=== PATIENT | male | born 1965 | race Caucasian/White ===

== ENCOUNTER 2019-04-13 00:54 | Observation (INO) | payer OTHER ==
[2019-04-13 02:23] LABS: Protime INR 1.03
[2019-04-13 02:33] LABS: Absolute Lymphocytes (CBC) 2.6 K/uL (0.7-4.9); Basophils % 0.8 % (0-1.3); Lymphocytes % 34.5 % (15.3-44.8); MPV 9.4 fL (7.6-11.3); RBC Red Blood Cell Count 4.82 M/uL (4.33-5.43)
[2019-04-13 02:39] LABS: ALT/SGPT 30 U/L (12-78); AST/SGOT 21 U/L (15-37); Albumin 3.8 g/dL (3.4-5.0); Alkaline Phosphatase 79 U/L (45-117); BUN Blood Urea Nitrogen 16 mg/dL (7-18); Bicarbonate 28 mmol/L (21-32); Bilirubin Direct < 0.1 mg/dL (0-0.2); Bilirubin Total 0.2 mg/dL (0.2-1.0); Glucose Level 122 mg/dL (74-106); Magnesium 2.2 mg/dL (1.8-2.4); NT PRO-BNP 994 pg/mL (<125); Potassium 4.2 mmol/L (3.5-5.1); Sodium Level 141 mmol/L (136-145); Troponin (Emerg Dept Use Only) < 0.02 ng/mL (0.0-0.045)
--- NOTE | 2019-04-13 04:16 | P.HP ---
Certification for Inpatient Patient admitted to: Observation With expected LOS: <2 Midnights Practitioner: I am a practitioner with admitting privileges, knowledge of patient current condition, hospital course, and medical plan of care. Services: Services provided to patient in accordance with Admission requirements found in Title 42 Section 412.3 of the Code of Federal Regulations Patient History Date of Service: 04/13/19 Reason for admission: Chest pain History of Present Illness: 54-year-old gentleman with a history of atrial fibrillation presented to the emergency department with a complaint of chest pain of onset about 4 hrs ago. Patient described a 8/10 chest pain which occurred at rest, rated at 8/10 in maximum security, sharp, intermittent, nonradiating, no relieving or aggravating factors. No associated sweating or nausea. 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 He stated he saw Dr. Sam a few days ago and had his Multaq changed to sotalol. He started taking the sotalol only yesterday. Chest pain had resolved before I saw him in the ED. Initial troponin is negative. EKG demonstrates atrial fibrillation, no ischemic changes. Chest x- ray is negative for acute disease. Patient is placed under observation for acute coronary syndrome rule out. Allergies No Known Allergies Allergy (Unverified 04/13/19 01:36) Home Medications: Dabigatran Etexilate Mesylate [Pradaxa*] 150 mg PO BID 04/13/19 Sotalol HCl [Sotalol AF] 80 mg PO BID 04/13/19 - Past Medical/Surgical History Diabetic: No -: Chronic atrial fibrillation -: Status post cardioversion - Family History Family History: Reviewed- Non-Contributory - Family History Father -: Hypertension Mother Notes: no medical condition - Social History Smoking Status: Current every day smoker Alcohol use: Yes CD- Drugs: No Place of Residence: Home Review of Systems Other: General: No fever, no malaise, no unintentional weight loss. Eyes: No eye discharge, Respiratory: No cough, no shortness of breath. CVS: No palpitation, no lightheadedness. GI: No abdominal pain, no nausea no vomit, no constipation, no diarrhea. Genitourinary: No dysuria, no urinary frequency, no incontinence, no hematuria. Musculoskeletal: No joint pains, or joint swelling, no gait instability. Neurology: No headache, no asymmetric weakness, no problem with swallowing. Except as documented, all other systems reviewed and negative. Physical Examination - Physical Exam General: Alert, In no apparent distress, Oriented x3 HEENT: Mucous membr. moist/pink, Sclerae nonicteric Neck: Supple, JVD not distended Respiratory: Clear to auscultation bilaterally, Normal air movement Cardiovascular: No edema, Normal S1 S2, Irregular heart rate/rhythm Capillary refill: <2 Seconds Gastrointestinal: Normal bowel sounds, Soft and benign, Non-distended, No tenderness Musculoskeletal: No swelling, No erythema Integumentary: No rashes Neurological: Normal speech, Normal strength at 5/5 x4 extr - Studies Laboratory Data (last 24 hrs) 04/13/19 01:00: PT 12.1, INR 1.03 04/13/19 01:00: WBC 7.6, Hgb 14.6, Hct 44.0, Plt Count 260 04/13/19 01:00: Sodium 141, Potassium 4.2, BUN 16, Creatinine 0.99, Glucose 122 H, Magnesium 2.2, Total Bilirubin 0.2, AST 21, ALT 30, Alkaline Phosphatase 79 Assessment and Plan - Problems (Diagnosis) (1) Chest pain Current Visit: Yes Status: Acute (2) Atrial fibrillation Current Visit: Yes Status: Acute (3) Tobacco use Current Visit: Yes Status: Acute - Plan Place under observation. Trend troponin Continue sotalol Continue Pradaxa Nuclear stress test if troponin trend negative. Obtained echocardiogram. Cardiology consult - Advance Directives Does patient have a Living Will: No Does patient have a Durable POA for Healthcare: No
[2019-04-13] MEDS ORDERED: NITROGLYCERIN 0.4 MG/TAB SL PRN (05:02)
[2019-04-13] MEDS ORDERED: MORPHINE 4 MG/ML SYR IV PRN (05:02)
[2019-04-13 05:03] VITALS: BMI 26.2
[2019-04-13 06:03] LABS: HDL Cholesterol 61 mg/dL (40-60); LDL Cholesterol, Calculated 61 (<130); Troponin I < 0.02 ng/mL (0.0-0.045)
--- NOTE | 2019-04-13 07:53 | RAD REPORT ---
EXAM DESCRIPTION: Noah Single View04/13/2019 4:00 am CLINICAL HISTORY: Chest pain COMPARISON: none FINDINGS: The lungs are hyperaerated. The lungs appear clear of acute infiltrate. The heart is normal size IMPRESSION: No acute abnormalities displayed
[2019-04-13] MEDS ORDERED: REGADENOSON 0.4 MG/5 ML SYR IV ONE (08:04)
[2019-04-13] MEDS ORDERED: MORPHINE 2 MG/ML SYR IV PRN (09:00)
--- NOTE | 2019-04-13 09:06 | ER ---
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 states it went away. just ch started sotolol today, and was dx with a fib 1 week ago. Transition of care: patient was not received from another setting of care. Onset of symptoms was April 13, 2019 at 00:30. Risk Assessment: Do you want to hurt yourself or someone else? Patient reports no desire to harm self or others. Initial Sepsis Screen: Does the patient meet any 2 criteria? No. Patient's initial sepsis screen is negative. Does the patient have a suspected source of infection? No. Patient's initial sepsis screen is negative. Care prior to arrival: None. 01:02 Method Of Arrival: Ambulatory 01:02 Acuity: CORBIN 2 ch Triage Assessment: 01:04 General: Appears in no apparent distress. comfortable, Behavior is calm, cooperative, ch appropriate for age. Pain: Complains of pain in xyphoid area and mid-sternal area Pain currently is 0 out of 10 on a pain scale. Cardiovascular: Reports chest pain. Respiratory: No deficits noted. Historical: - Allergies: 01:04 No Known Allergies; - Home Meds: 01:04 sotalol Oral [Active]; Pradaxa oral oral [Active]; - PMHx: 01:04 Atrial Fib; - PSHx: 01:04 finger; - Immunization history:: Adult Immunizations up to date, Last tetanus immunization: not indicated for visit today. Flu vaccine is not up to date. - Coronavirus screen:: The patient has NOT traveled to [place], [place], or [place] in the past 14 days. The patient has NOT had contact with known/suspected case of Coronavirus?. - Social history:: Smoking status: Patient reports the use of cigarette tobacco products, smokes one pack cigarettes per day. Patient uses alcohol, on a daily basis. claims drinking about a 6 pack/day. - Ebola Screening: : Patient negative for fever greater than or equal to 101.5 degrees Fahrenheit, and additional compatible Ebola Virus Disease symptoms Patient denies exposure to infectious person Patient denies travel to an Ebola-affected area in the 21 days before illness onset No symptoms or risks identified at this time. Screenin:07 Abuse screen: Denies threats or abuse. Denies injuries from another. Nutritional wh screening: No deficits noted. Tuberculosis screening: No symptoms or risk factors identified. Fall Risk None identified. Assessment: 01:05 Reassessment: Jose C in room beginning to work pt up. 01:07 General: Appears in no apparent distress. Behavior is calm, cooperative, appropriate wh for age. Pain: Complains of pain in chest and mid-sternal area Pain does not radiate. Pain currently is 1 out of 10 on a pain scale. Quality of pain is described as sharp, Pain began 30 min ago. Neuro: Level of Consciousness is awake, alert, obeys commands, Oriented to person, place, time, situation, Appropriate for age. Cardiovascular: Heart tones S1 S2. Respiratory: Airway is patent Respiratory effort is even, unlabored, Respiratory pattern is regular, symmetrical, Breath sounds are clear bilaterally. GI: Abdomen is flat, non-distended. : No signs and/or symptoms were reported regarding the genitourinary system. EENT: No signs and/or symptoms were reported regarding the EENT system. Derm: Skin is intact, is healthy with good turgor, Skin is pink, warm \T\ dry. normal. Musculoskeletal: Circulation, motion, and sensation intact. 02:15 Reassessment: Patient appears in no apparent distress at this time. No changes from previously documented assessment. Patient and/or family updated on plan of care and expected duration. Pain level reassessed. Patient is alert, oriented x 3, equal unlabored respirations, skin warm/dry/pink. 03:30 Reassessment: Patient appears in no apparent distress at this time. No changes from previously documented assessment. Patient and/or family updated on plan of care and expected duration. Pain level reassessed. Patient is alert, oriented x 3, equal unlabored respirations, skin warm/dry/pink. MD at bedside explaining POC need for admit. 04:25 Reassessment: Patient appears in no apparent distress at this time. No changes from previously documented assessment. Patient and/or family updated on plan of care and expected duration. Pain level reassessed. Patient is alert, oriented x 3, equal unlabored respirations, skin warm/dry/pink. Patient denies pain at this time. Vital Signs: 01:04 Weight 104.33 kg; Height 6 ft. 7 in. (200.66 cm); Pain 0/10; ch 01:15 BP 112 / 87 LA Supine (auto/reg); Pulse 84 MON; Resp 14 S; Temp 98.7(O); Pulse Ox 98% ds4 on R/A; Pain 0/10; 02:31 BP 105 / 84; Pulse 76; Resp 17; Pulse Ox 97% ; ds4 04:00 BP 119 / 84; Pulse 77; Resp 18; Pulse Ox 99% on R/A; wh 01:04 Body Mass Index 25.91 (104.33 kg, 200.66 cm) ED Course: 00:59 Patient arrived in ED. ag3 01:01 Zacarias Arroyo MD is Attending Physician. tw4 01:03 Triage completed. 01:04 Arm band placed on left wrist. Patient placed in an exam room, on a stretcher. EKG completed in triage. Results shown to MD. 01:06 Briana Beverly is Primary Nurse. 01:08 Patient has correct armband on for positive identification. Placed in gown. Bed in low wh position. Call light in reach. Side rails up X 1. community service coordinator on. Pulse ox on. NIBP on. 01:08 Inserted saline lock: 20 gauge in right antecubital area, using aseptic technique. Blood collected. Patient maintains SpO2 saturation greater than 95% on room air. 01:15 EKG done, by ED staff, reviewed by Zacarias Arroyo MD. ds4 02:48 Armand Booth is Hospitalizing Provider. tw4 04:37 No provider procedures requiring assistance completed. Patient admitted, IV remains in place. Administered Medications: No medications were administered Outcome: 02:49 Decision to Hospitalize by Provider. tw4 04:38 Admitted to Med/surg accompanied by tech, via wheelchair, room 231, with chart, Report called to Anaya Gardiner RN 04:38 Condition: stable 04:38 Instructed on the need for admit. 04:50 Patient left the ED. Signatures: Adry Elias, ENRIQUE RN Simón Jenkins ds4 Briana Beverly Zacarisa Arroyo MD MD tw4 Piper Lai ag3 Corrections: (The following items were deleted from the chart) 04:36 01:07 Pain: Complains of pain in chest and mid-sternal area Pain does not radiate. Pain wh currently is 5 out of 10 on a pain scale. Quality of pain is described as sharp, Pain began 30 min ago. wh
--- NOTE | 2019-04-13 09:07 | EDPHYS ---
Physician Documentation [facility] Name: Bayron Box Age: 54 yrs Sex: Male : 1965 Arrival Date: 04/13/2019 Time: 00:59 Bed 6 Private MD: ED Physician Zacarias Arroyo HPI: 04/13 01:20 This 54 yrs old Male presents to ER via Ambulatory with complaints of Chest tw4 Pain. 01:20 The patient or guardian reports chest pain that is located primarily in the anterior tw4 chest wall. Onset: today. The pain radiates to Associated signs and symptoms: The patient has no apparent associated signs or symptoms. The chest pain is described as sharp. Duration: The patient or guardian reports a single episode. Modifying factors: The symptoms are alleviated by antacids, the symptoms are aggravated by nothing. The patient has not experienced similar symptoms in the past. Historical: - Allergies: 01:04 No Known Allergies; ch - Home Meds: 01:04 sotalol Oral [Active]; Pradaxa oral oral [Active]; ch - PMHx: 01:04 Atrial Fib; ch - PSHx: 01:04 finger; ch - Immunization history:: Adult Immunizations up to date, Last tetanus immunization: not indicated for visit today. Flu vaccine is not up to date. - Coronavirus screen:: The patient has NOT traveled to [place], [place], or [place] in the past 14 days. The patient has NOT had contact with known/suspected case of Coronavirus?. - Social history:: Smoking status: Patient reports the use of cigarette tobacco products, smokes one pack cigarettes per day. Patient uses alcohol, on a daily basis. claims drinking about a 6 pack/day. - Ebola Screening: : Patient negative for fever greater than or equal to 101.5 degrees Fahrenheit, and additional compatible Ebola Virus Disease symptoms Patient denies exposure to infectious person Patient denies travel to an Ebola-affected area in the 21 days before illness onset No symptoms or risks identified at this time. ROS: 01:20 Constitutional: Negative for fever, chills, and weight loss, Eyes: Negative for injury, tw4 pain, redness, and discharge, Neck: Negative for injury, pain, and swelling, Respiratory: Negative for shortness of breath, cough, wheezing, and pleuritic chest pain, Abdomen/GI: Negative for abdominal pain, nausea, vomiting, diarrhea, and constipation. 01:20 Back: Negative for injury and pain, MS/Extremity: Negative for injury and deformity, Skin: Negative for injury, rash, and discoloration, Neuro: Negative for headache, weakness, numbness, tingling, and seizure. 01:20 Cardiovascular: Positive for chest pain, Negative for edema, orthopnea, palpitations. Exam: 01:20 Constitutional: This is a well developed, well nourished patient who is awake, alert, tw4 and in no acute distress. Head/Face: Normocephalic, atraumatic. Chest/axilla: Normal chest wall appearance and motion. Nontender with no deformity. No lesions are appreciated. 01:20 Respiratory: Lungs have equal breath sounds bilaterally, clear to auscultation and percussion. No rales, rhonchi or wheezes noted. No increased work of breathing, no retractions or nasal flaring. Abdomen/GI: Soft, non-tender, with normal bowel sounds. No distension or tympany. No guarding or rebound. No evidence of tenderness throughout. Back: No spinal tenderness. No costovertebral tenderness. Full range of motion. MS/ Extremity: Pulses equal, no cyanosis. Neurovascular intact. Full, normal range of motion. Neuro: Awake and alert, GCS 15, oriented to person, place, time, and situation. Cranial nerves II-XII grossly intact. Motor strength 5/5 in all extremities. Sensory grossly intact. Cerebellar exam normal. Normal gait. 01:20 Cardiovascular: Rate: normal, Rhythm: irregularly irregular, Pulses: no pulse deficits are appreciated. Vital Signs: 01:04 Weight 104.33 kg; Height 6 ft. 7 in. (200.66 cm); Pain 0/10; ch 01:15 BP 112 / 87 LA Supine (auto/reg); Pulse 84 MON; Resp 14 S; Temp 98.7(O); Pulse Ox 98% ds4 on R/A; Pain 0/10; 02:31 BP 105 / 84; Pulse 76; Resp 17; Pulse Ox 97% ; ds4 04:00 BP 119 / 84; Pulse 77; Resp 18; Pulse Ox 99% on R/A; wh 01:04 Body Mass Index 25.91 (104.33 kg, 200.66 cm) ch MDM: 01:01 Patient medically screened. tw4 01:20 Differential diagnosis: abnormal EKG, coronary artery disease cholecystitis, tw4 Cholelithiasis costochondritis, herpes zoster, pulmonary embolus, thoracic aortic disection, unstable angina. Data reviewed: vital signs, nurses notes. Data interpreted: Pulse oximetry: Interpretation: normal. Counseling: I had a detailed discussion with the patient and/or guardian regarding: the historical points, exam findings, and any diagnostic results supporting the discharge/admit diagnosis. Special discussion: I discussed with the patient/guardian in detail that at this point there is no indication for admission to the hospital. It is understood, however, that if the symptoms persist or worsen the patient needs to return immediately for re-evaluation. 03:58 HEART Score: History: Moderately Suspicious (1), ECG: Non specific repolarization tw4 disturbance / LBTB / PM (1), Age: > 45 and < 65 years (1), Risk Factors: 1 or 2 risk factors (1), Troponin: < or = 1 x Normal Limit (0), Total Score = 4. The patient was given aspirin in the Emergency Department. Data reviewed: lab test result(s), cardiac enzymes, CBC, hepatic panel. Physician consultation: Armand Booth regarding admission, to the telemetry unit. patient's condition, and will see patient in the [facility]. 04/13 01:06 Order name: Basic Metabolic Panel 04/13 01:06 Order name: CBC with Diff 04/13 01:06 Order name: LFT's 04/13 01:06 Order name: Magnesium 04/13 01:06 Order name: NT PRO-BNP 04/13 01:06 Order name: PT-INR 04/13 01:06 Order name: Troponin (emerg Dept Use Only) 04/13 02:26 Order name: Protime (+INR); Complete Time: 02:44 EDMS 04/13 02:35 Order name: CBC with Automated Diff; Complete Time: 02:44 EDMS 04/13 02:45 Interpretation: Within normal limits. tw4 04/13 02:40 Order name: Basic Metabolic Panel; Complete Time: 02:44 EDMS 04/13 02:44 Interpretation: Normal except: CL 108; GLUC 122; GFR 78. tw4 04/13 02:40 Order name: Liver (Hepatic) Function; Complete Time: 02:44 EDMS 0206 02:45 Interpretation: Within normal limits. tw4 04/13 02:41 Order name: Troponin (Emerg Dept Use Only); Complete Time: 02:44 EDMS 0206 02:46 Interpretation: Within normal limits: TROPED < 0.02. tw4 02 02:41 Order name: NT PRO-BNP; Complete Time: 02:44 EDMS 02 02:45 Interpretation: Abnormal: NT PRO-BNP 994. tw4 02 02:42 Order name: Magnesium; Complete Time: 02:44 EDMS 02 02:47 Interpretation: Within normal limits: MG 2.2. tw4 04/13 01:06 Order name: XRAY Chest (1 view) 04/13 01:06 Order name: EKG; Complete Time: 09:05 04/13 01:06 Order name: Cardiac monitoring; Complete Time: 01:06 04/13 01:06 Order name: EKG - Nurse/Tech; Complete Time: 01:06 04/13 01:06 Order name: IV Saline Lock; Complete Time: 01:07 04/13 01:06 Order name: Labs collected and sent; Complete Time: 01:07 04/13 01:06 Order name: O2 Per Protocol; Complete Time: 01:07 04/13 01:06 Order name: O2 Sat Monitoring; Complete Time: 01:07 EC:57 Rate is 90 beats/min. Rhythm is irregularly irregular, A fib. QRS [place] is Normal. ME tw4 interval is normal. QRS interval is normal. QT interval is normal. No Q waves. T waves are Normal. No ST changes noted. Clinical impression: Atrial Fibrillation. Interpreted by me. Reviewed by me. Administered Medications: No medications were administered Disposition: 04/13/19 02:49 Hospitalization ordered by Armand Booth for Observation. Preliminary diagnosis is Chest pain, unspecified. - Bed requested for Telemetry/MedSurg (observation). - Status is Observation. - Condition is Stable. - Problem is new. - Symptoms have improved. Signatures: Dispatcher [employer] EDMS Adry Elias RN RN Shirley Hawley RN RN tl1 Briana Beverly Zacarias Arroyo MD MD tw4 Corrections: (The following items were deleted from the chart) 04:24 02:49 Hospitalization Ordered by Armand Booth for Observation. Preliminary diagnosis tl1 is Chest pain, unspecified. Bed requested for Telemetry/MedSurg (observation). Status is Observation. Condition is Stable. Problem is new. Symptoms have improved. tw4 04:50 04:24 04/13/2019 02:49 Hospitalization Ordered by Armand Booth for Observation. wh Preliminary diagnosis is Chest pain, unspecified. Bed requested for Telemetry/MedSurg (observation). Status is Observation. Condition is Stable. Problem is new. Symptoms have improved. tl1
[2019-04-13] MEDS: DABIGATRAN 150 MG CAP PO SCH ×2 (10:04→21:12)
--- NOTE | 2019-04-13 10:23 | EKG ---
Test Date: 2019-04-13 Test Time: 08:16:35 Market Development Analyst: ALEXANDRA MEASUREMENT RESULTS: Intervals: Rate: 77 FL: QRSD: 110 QT: 402 QTc: 454 [place]: P: FL: QRS: 72 T: 78 INTERPRETIVE STATEMENTS: Atrial fibrillation Abnormal ECG Compared to ECG 04/13/2019 01:05:41 Ventricular premature complex(es) no longer present Electronically Signed On 04-13-19 10:22:39 DISTILLERY MILLER HELPER by Harjit Sam
--- NOTE | 2019-04-13 10:24 | EKG ---
Test Date: 2019-04-13 Test Time: 01:05:41 Rocket Motor Mechanic: BERTIN MEASUREMENT RESULTS: Intervals: Rate: 90 LA: QRSD: 108 QT: 374 QTc: 457 [place]: P: LA: QRS: 57 T: 58 INTERPRETIVE STATEMENTS: Atrial fibrillation with premature ventricular or aberrantly conducted complexes Abnormal ECG Compared to ECG 01/15/2009 15:49:05 Ventricular premature complex(es) now present Sinus bradycardia no longer present Atrial premature complex(es) no longer present Electronically Signed On 04-13-19 10:23:46 WAREHOUSE ADMINISTRATOR by Harjit Sam
--- NOTE | 2019-04-13 11:22 | ECHO ---
HEIGHT: 6 ft 7 in WEIGHT: 232 lb 4 oz DATE OF STUDY: 04/13/[address]: danielle bhatti 2-DIMENSIONAL: YES M.MODE: YES DOPPLER: YES COLOR FLOW: YES TDS: NO PORTABLE: NO DEFINITY: NO BUBBLE STUDY: NO DIAGNOSIS: ATRIAL FIBRILLATION WITH CHEST PAIN CARDIAC HISTORY: CATHERIZATION: NO SURGERY: NO PROSTHETIC VALVE: NO PACEMAKER: NO MEASUREMENTS (cm) DIASTOLIC (NORMALS) SYSTOLIC (NORMALS) IVSd 1.1 (0.6-1.2) LA Diam 2.9 (1.9-4.0) LVEF 52% LVIDd 3.0 (3.5-5.7) LVIDs 2.2 (2.0-3.5) %FS 25% LVPWd 1.2 (0.6-1.2) Ao Diam 2.7 (2.0-3.7) 2 DIMENSIONAL ASSESSMENT: RIGHT ATRIUM: NORMAL LEFT ATRIUM: NORMAL RIGHT VENTRICLE: NORMAL LEFT VENTRICLE: NORMAL TRICUSPID VALVE: NORMAL MITRAL VALVE: NORMAL PULMONIC VALVE: NORMAL AORTIC VALVE: NORMAL PERICARDIAL EFFUSION: NONE AORTIC ROOT: NORMAL LEFT VENTRICULAR WALL MOTION: NORMAL. DOPPLER/COLOR FLOW: PHYSIOLOGIC TRICUSPID REGURGITATION, NORMAL RIGHT VENTRICULAR SYSTOLIC PRESSURE. COMMENTS: NORMAL 2D ECHO WITH DOPPLER WHILE PATIENT IS IN ATRIAL FIBRILLATION 80-90 BEATS PER MINUTE. TECHNOLOGIST: JERRY DAVISON
--- NOTE | 2019-04-13 12:10 | RAD REPORT ---
EXAM DESCRIPTION: NM - Rest Stress Cardiac Imaging - 04/13/2019 12:02 pm CLINICAL HISTORY: Chest pain COMPARISON: None. TECHNIQUE: The patient was administered 10.9 mCi of Tc 99m Sestamibi prior to resting SPECT imaging of the heart. The patient was then administered 32.8 mCi of Tc 99m Sestamibi following exercise or ph armacologic stress. Multiplanar SPECT images were reviewed. FINDINGS: The end diastolic volume is 130 ml, the end systolic volume is 58 ml, and the ejection fra ction is 56 %. Diaphragm attenuation or scarring cause diminished activity along the inferior wall on both rest and stress imaging. No stress-induced ischemic changes identifiable. IMPRESSION: No stress-induced ischemia. Fixed decreased activity inferior wall could be attenuation artifact or scarring. End-diastolic volume is prominent at 130 mL. Ejection fraction normal at 56%.
--- NOTE | 2019-04-13 12:16 | TREADPHA ---
DX: ATRIAL FIBRILLATION WITH CHEST PAIN Date of Study: 04/13/2019 Ht: 6 7 Wt: 232 lb 4 oz Consulting Physician: EVANS MEDICATIONS: NITROSTAT HISTORY: 54 YEAR OLD MALE WITH COMPLAINTS OF CHEST PAIN. MEDICAL HISTORY: ATRIAL FIBRILLATION, HYPERTENSION, POSITIVE SMOKER. PHYSICIAL EXAMINATION: RESTING B.P.: 113/75 RESTING H.R.: 85 RESTING EKG: ATRIAL FIBRILLATION WITH PREMATURE VENTRICULAR COMPLEXES PROTOCOL: PHARMACOLOGIC EXERCISE TIME: 3:30 B.P. AT PEAK STRESS: 136/100 IMPRESSION: LEXISCAN INJECTED, CARDIOLITE INJECTED PER PROTOCOL. SEE NUCLEAR MEDICINE REPORT. NO SUPRAVENTRICULAR COMPLEXES. NO VENTRICULAR TACHYCARDIA. MULTIPLE PREMATURE VENTRICULAR COMPLEXES THROUGHOUT. DENIED CHEST PAIN. NON-DIAGNOSTIC ELECTROCARDIOGRAM WITH LEXISCAN STRESS.
[2019-04-13] MEDS ORDERED: SOTALOL HCL 80 MG TAB PO ONE (12:45)
--- NOTE | 2019-04-13 13:27 | CON ---
History Of Present Illness: Mr. Box is 54. He has had paroxysmal AFib for more than 10 years, w ell controlled. Last week, he went into AFib for the first time in several years. It was persistent , so we changed him from Multaq to sotalol. Sotalol was started yesterday. He came to the hospital yesterday because of chest pain. The chest pain is right in the sternum, a little bit worse when he takes a deep breath. There is no sign of myocardial infarction by EKG or enzymes. His outpatient me dications have been sotalol 80 mg b.i.d. and Pradaxa 150 mg b.i.d. No allergies. He is a regular to bacco user. No history of myocardial infarction, stroke, diabetes, dyslipidemia, hypertension, or an y vascular injuries or vascular procedures. Physical Examination: Constitutional: 6 feet 7 inches, 232 pounds. General: Alert oriented, pleasant, not in distress. Lungs: Clear. Cardiac: Normal heart exam, irregular otherwise normal. Abdomen: Soft. Extremities: Normal. Impression: We want to re-establish sotalol and Pradaxa and do a stress test and echo. If he is sti ll in atrial fibrillation tomorrow, we will do a cardioversion. ANIRUDH/DARNELL Voice ID: [id number] Report ID: [id number]
[2019-04-13] MEDS ORDERED: SOTALOL HCL 80 MG TAB PO SCH (18:00)
[2019-04-13] MEDS: SOTALOL HCL 80 MG TAB PO SCH (23:04)
[2019-04-14 06:33] LABS: Absolute Lymphocytes (CBC) 2.4 K/uL (0.7-4.9); BUN Blood Urea Nitrogen 13 mg/dL (7-18); Basophils % 0.6 % (0-1.3); Bicarbonate 26 mmol/L (21-32); Glucose Level 94 mg/dL (74-106); Hematocrit 44.8 % (39.6-49.0); Lymphocytes % 32.1 % (15.3-44.8); MPV 9.3 fL (7.6-11.3); Potassium 4.3 mmol/L (3.5-5.1); RBC Red Blood Cell Count 4.92 M/uL (4.33-5.43); Sodium Level 142 mmol/L (136-145)
[2019-04-14] MEDS: DABIGATRAN 150 MG CAP PO SCH (07:41)
[2019-04-14] MEDS ORDERED: MIDAZOLAM HCL 5 MG/5 ML INJ ONE (07:53)
[2019-04-14] MEDS ORDERED: NA CHLORIDE 0.9% 500 ML ONE (07:53)
[2019-04-14] MEDS ORDERED: ATROPINE SULF 1 MG/10 ML SYR IV ONE (07:53)
[2019-04-14] MEDS ORDERED: FLUMAZENIL 0.1 MG/ML (5 mL VIAL) IV ONE (08:02)
[2019-04-14 10:05] VITALS: O2SAT 98
[2019-04-14] MEDS: SOTALOL HCL 80 MG TAB PO SCH (11:24)
--- NOTE | 2019-04-14 11:29 | P.DS ---
Admission Date: 04/13/19 Discharge Date: 04/14/19 Disposition: ROUTINE DISCHARGE Discharge Condition: GOOD Reason for Admission: Chest pain Hospital Course: patient with hx of atrial fib admitted for chest pain. chest pain resolved in the ER . stress test was done and reported negative . He continue in atrial fib with RVR . He was evaluated by cardiology and had his sotalol dose increased with subsequent cardioversion done . Post Cardioversion , he remained in sinus rhthym now . He is ambulatory and remain chest pain free and will be discharged home today Vital Signs/Physical Exam: Temp Pulse Resp BP Pulse Ox 97.5 F 60 16 94/66 95 04/14/19 09:45 04/14/19 09:45 04/14/19 09:45 04/14/19 09:45 04/14/19 08:00 General: Alert, In no apparent distress, Oriented x3 HEENT: Atraumatic, Normocephalic, PERRLA Neck: 2+ carotid pulse no bruit, JVD not distended Respiratory: Clear to auscultation bilaterally, Normal air movement Cardiovascular: No edema, Normal pulses, Regular rate/rhythm, Normal S1 S2 Gastrointestinal: Normal bowel sounds, Soft and benign, Non-distended, No ascites, No tenderness Musculoskeletal: No clubbing, No swelling Neurological: Normal gait, Normal speech, Normal strength at 5/5 x4 extr, Normal tone Laboratory Data at Discharge: WBC 7.5 K/uL (4.3-10.9) 04/14/19 05:40 Hgb 15.1 g/dL (13.6-17.9) 04/14/19 05:40 Hct 44.8 % (39.6-49.0) 04/14/19 05:40 Plt Count 244 K/uL (152-406) 04/14/19 05:40 PT 12.1 SECONDS (9.5-12.5) 04/13/19 01:00 INR 1.03 04/13/19 01:00 Sodium 142 mmol/L (136-145) 04/14/19 05:40 Potassium 4.3 mmol/L (3.5-5.1) 04/14/19 05:40 BUN 13 mg/dL (7-18) 04/14/19 05:40 Creatinine 0.84 mg/dL (0.55-1.3) 04/14/19 05:40 Glucose 94 mg/dL (74-106) 04/14/19 05:40 Magnesium 2.2 mg/dL (1.8-2.4) 04/13/19 01:00 Total Bilirubin 0.2 mg/dL (0.2-1.0) 04/13/19 01:00 AST 21 U/L (15-37) 04/13/19 01:00 ALT 30 U/L (12-78) 04/13/19 01:00 Alkaline Phosphatase 79 U/L (45-117) 04/13/19 01:00 Troponin I < 0.02 ng/mL (0.0-0.045) 04/13/19 08:53 Triglycerides 153 mg/dL (<150) H 04/13/19 05:22 Cholesterol 153 mg/dL (<200) 04/13/19 05:22 HDL Cholesterol 61 mg/dL (40-60) H 04/13/19 05:22 Cholesterol/HDL Ratio 2.51 04/13/19 05:22 Home Medications: Dabigatran Etexilate Mesylate [Pradaxa*] 150 mg PO BID 04/13/19 Sotalol HCl [Sotalol AF] 80 mg PO BID 04/13/19 Diet: Low sodium Activity: Ad sophia Followup: Harjit Sam MD [ACTIVE - CAN ADMIT] - Physician Review: Patient Assessed, Agree with Above Assessment and Plan Time spent managing pt's care (in minutes): 35
--- NOTE | 2019-04-14 12:40 | OP ---
Surgeon: Harjit Sam MD Procedure: Direct current cardioversion. Indication: Atrial fib refractory to chemical cardioversion. Procedure In Detail: The patient was brought to the [facility]. He gave us informed c onsent. He had been on Pradaxa 150 mg b.i.d. for about 10 years uninterrupted. He had been loaded o n Betapace for 72 hours. He was sedated with 10 mg of Versed, titrated to an adequate level of sedat ion. Anterior-posterior paddles were placed on his chest. A single shock of 200 joules was given. It was synchronized with the QRS complex. This resulted in sinus rhythm, sinus bradycardia. Complic ations from the procedure none. Estimated Blood Loss: 0 cc. ANIRUDH/DARNELL Voice ID: [id number] Report ID: [id number]
[2019-04-14 14:00] VITALS: BP 101/68; TEMP 97.9
--- NOTE | 2019-04-14 15:08 | EKG ---
Test Date: 2019-04-14 Test Time: 08:21:10 [employer] Purifier: ALEXANDRA MEASUREMENT RESULTS: Intervals: Rate: 58 PA: 172 QRSD: 102 QT: 440 QTc: 431 [place]: P: 66 PA: 172 QRS: 64 T: 72 INTERPRETIVE STATEMENTS: Sinus bradycardia Otherwise normal ECG Compared to ECG 04/13/2019 08:16:35 Atrial fibrillation no longer present Electronically Signed On 04-14-19 15:07:32 [employer] by Harjit Sam
== END 2019-04-14 11:50 | disposition home or self-care (01) ==
LOC: ER 00:54 → 2ND 04:43
PROVIDERS: ADMIT Internal Medicine; ATTEND Internal Medicine
PROC: 5A2204Z Restoration of Cardiac Rhythm, Single (ICD-10-PCS; principal; 2019-04-14)
DX: I48.91 Unspecified atrial fibrillation (principal); Z79.01 Long term (current) use of anticoagulants; F17.210 Nicotine dependence, cigarettes, uncomplicated
CPT/HCPCS: 93005 ×2; 93017; 93306; 85025 ×2; 80048 ×2; 36415 ×2; 83735; 85610; 80061; 80076; 84484 ×3; 83880; 71045; 92960 ×2; 94760 ×3; 78452; 99285; J2250; J2785; G0378 ×4; J7040; A9500

== ENCOUNTER 2021-12-25 08:50 | Observation (INO) | payer OTHER, SELFPAY ==
[2021-12-25 09:24] LABS: Absolute Lymphocytes (CBC) 1.3 K/uL (0.7-4.9); Hematocrit 43.9 % (39.6-49.0); Lymphocytes % 11.3 % (15.3-44.8); MCV 91.1 fL (80-100); MPV 8.1 fL (7.6-11.3); RBC Red Blood Cell Count 4.82 M/uL (4.33-5.43)
[2021-12-25] MEDS ORDERED: ENOXAPARIN 100 MG/ML SYR SQ ONE (09:25)
[2021-12-25] MEDS ORDERED: FAMOTIDINE 20 MG/2 ML VIAL IV ONE (09:25)
[2021-12-25 09:26] LABS: Protime INR 0.93
--- NOTE | 2021-12-25 09:27 | ER ---
Nurse's Notes [facility] Name: Bayron Box Age: 56 yrs Sex: Male : 1965 Arrival Date: 12/25/2021 Time: 08:52 Bed 27 Private MD: Castro Martinez Diagnosis: Chest pain on breathing;Chest pain, unspecified;Angina pectoris, unspecified;Tobacco abuse counseling;Tobacco use;Solitary pulmonary nodule-x 2 Presentation: 12/25 09:01 Chief complaint: Patient states: chest pain since 5pm yesterday with accompanied SOB. jh5 went to [facility] this morning and was told he is having an angina attack, was given morphine. Coronavirus screen: Vaccine status: Patient reports receiving the 2nd dose of the covid vaccine. Client denies travel out of the [place] in the last 14 days. At this time, the client does not indicate any symptoms associated with coronavirus-19. Ebola Screen: Patient negative for fever greater than or equal to 101.5 degrees Fahrenheit, and additional compatible Ebola Virus Disease symptoms Patient denies exposure to infectious person. Patient denies travel to an Ebola-affected area in the 21 days before illness onset. Initial Sepsis Screen: Does the patient meet any 2 criteria? No. Patient's initial sepsis screen is negative. Does the patient have a suspected source of infection? No. Patient's initial sepsis screen is negative. Risk Assessment: Do you want to hurt yourself or someone else? Patient reports no desire to harm self or others. Onset of symptoms was December 24, 2021. 09:01 Method Of Arrival: Ambulatory [facility] 09:01 Acuity: CORBIN 2 [facility] Triage Assessment: 09:02 General: Appears uncomfortable, slender, well groomed, well developed, Behavior is [facility] calm, cooperative, appropriate for age. Pain: Complains of pain in chest. Cardiovascular: Reports chest pain. Historical: - Home Meds: 09:02 sotalol Oral [Active]; Pradaxa Oral [Active]; [facility] - PMHx: 09:02 Atrial Fib; [facility] - Immunization history:: Adult Immunizations up to date. - Social history:: Smoking status: Patient reports the use of cigarette tobacco products, smokes one pack cigarettes per day. - Family history:: not pertinent. Assessment: 08:55 Reassessment: pt states he received 4 mg of morphine and 324 mg of Aspirin 30 minutes mb9 ago at [facility]. 09:10 General: Appears in no apparent distress. comfortable. Pain: Complains of pain in chest mb9 Pain radiates to abdomen Pain at worst was 7 out of 10 on a pain scale. Pain began 1 day ago. Neuro: Level of Consciousness is awake, alert, obeys commands, Oriented to person, place, time, situation, Appropriate for age. Cardiovascular: Reports chest pain, Heart tones S1 S2 present Rhythm is regular. Respiratory: Reports shortness of breath Airway is patent Respiratory effort is even, unlabored, Respiratory pattern is regular, symmetrical, Breath sounds are clear bilaterally. GI: Abdomen is flat, Bowel sounds present X 4 quads. Abd is soft and non tender X 4 quads. Reports heartburn. : No signs and/or symptoms were reported regarding the genitourinary system. EENT: No signs and/or symptoms were reported regarding the EENT system. Derm: Skin is pink, warm \\T\\ dry. Musculoskeletal: Range of motion: intact in all extremities. 09:34 Reassessment: pt refused Lovenox and states "I drink beer instead." Pt education was mb9 provided. Pt continued to decline. 10:05 Reassessment: pt taken to CT via wheelchair. mb9 11:00 Reassessment: pt complaining of chest pain. Physician notified. mb9 11:45 Reassessment: pt currently sleeping. at bedside. mb9 13:00 General: Appears comfortable. Pain: Denies pain. Neuro: Level of Consciousness is mb9 awake, alert, obeys commands, Oriented to person, place, time, situation, Appropriate for age. Cardiovascular: Heart tones S1 S2 present Rhythm is sinus bradycardia. Respiratory: Airway is patent Respiratory effort is even, unlabored, Respiratory pattern is regular, symmetrical. Derm: Skin is pink, warm \\T\\ dry. 13:55 Reassessment: ECHO at bedside. mb9 14:10 General: Appears comfortable. Pain: Denies pain. Neuro: Level of Consciousness is mb9 awake, alert, obeys commands, Oriented to person, place, time, situation, Appropriate for age. Cardiovascular: Heart tones S1 S2 present Rhythm is sinus bradycardia. Respiratory: Airway is patent Respiratory effort is even, unlabored, Respiratory pattern is regular, symmetrical. Derm: Skin is pink, warm \\T\\ dry. 19:12 Reassessment: report given to ENRIQUE Escalante. 9 19:53 Reassessment: Patient and/or family updated on plan of care and expected duration. Pain vc1 level reassessed. Patient is alert, oriented x 3, equal unlabored respirations, skin warm/dry/pink. Patient denies pain at this time. Patient states feeling better. Patient states symptoms have improved. Vital Signs: 09:01 Resp 18; Weight 113.4 kg; Height 6 ft. 7 in. (200.66 cm); jh5 09:10 BP 139 / 79; Pulse 62; Resp 16; Pulse Ox 100% on R/A; mb9 09:37 BP 141 / 89; Pulse 69; Resp 18; Pulse Ox 100% on R/A; Pain 0/10; mb9 11:21 BP 127 / 89; Pulse 60; Resp 16; Pulse Ox 100% on R/A; mb9 12:15 BP 135 / 90; Pulse 57; Resp 16; Pulse Ox 100% on R/A; mb9 13:00 BP 113 / 58; Pulse 59; Resp 16; Pulse Ox 100% on R/A; mb9 14:13 BP 121 / 81; Pulse 54; Resp 14; Pulse Ox 100% on R/A; mb9 19:13 BP 115 / 72; Pulse 62; Resp 18; Pulse Ox 96% on R/A; vc1 09:01 Body Mass Index 28.16 (113.40 kg, 200.66 cm) 5 ED Course: 08:52 Patient arrived in ED. am2 08:52 Castro Martinez MD is Private Physician. am2 08:53 Guanako Reeves MD is Attending Physician. [facility] 09:02 Triage completed. jh5 09:02 Arm band placed on right wrist. 5 09:08 Nicky Perales RN is Primary Nurse. mb9 09:12 Lipase Sent. mb9 09:12 Basic Metabolic Panel Sent. mb9 09:12 CBC with Diff Sent. mb9 09:12 LFT's Sent. mb9 09:12 Magnesium Sent. mb9 09:12 NT PRO-BNP Sent. mb9 09:12 PT-INR Sent. mb9 09:12 Troponin HS Sent. mb9 09:12 EKG done, by surgical scrub tech. reviewed by Guanako Reeves MD. Inserted saline lock: 20 gauge in mb9 left forearm, using aseptic technique. Blood collected. 09:26 Armand Booth is Hospitalizing Provider. song 09:28 XRAY Chest (1 view) In Process Unspecified. EDMS 09:35 Florin Colón MD is Hospitalizing Provider. song 10:21 CT Chest For PE Angio In Process Unspecified. EDMS 11:18 EKG done, by ED staff, reviewed by Guanako Reeves MD. mb9 20:16 Primary Nurse role handed off by Nicky Perales, ENRIQUE bb Administered Medications: 09:12 Not Given (Physician Discretion): Aspirin Chewable Tablet 324 mg PO once; 81 mg tablets mb9 x 4 09:34 Not Given (Patient Refused): Lovenox (enoxaparin) 1 mg/kg Sub-Q once mb9 09:34 Drug: Pepcid (famotidine) 20 mg Route: IVP; Site: left antecubital; mb9 09:47 Follow up: Response: No adverse reaction mb9 11:18 Drug: morphine 4 mg Route: IVP; Infused Over: 4 mins; Site: left forearm; mb9 12:51 Follow up: Response: No adverse reaction mb9 11:18 Drug: Zofran (Ondansetron) 4 mg Route: IVP; Site: left forearm; mb9 12:51 Follow up: Response: No adverse reaction mb9 11:18 Drug: GI Cocktail without - (Maalox Suspension 30 ml, Lidocaine Liquid 2 % 15 mb9 ml) Route: PO; 12:51 Follow up: Response: No adverse reaction mb9 Outcome: 09:27 Decision to Hospitalize by Provider. song 20:09 Patient left the ED. hb 21:46 Patient left the ED. hb Signatures: Dispatcher [employer] EDMS Guanako Reeves MD MD cha Ballard, Brenda, RN RN bb Anusha Rodríguez RN RN Argelia Benito Jessica, RN RN jh5 Ava Torres RN RN vc1 Nicky Perales, RN RN mb9 Corrections: (The following items were deleted from the chart) 09:14 09:12 Reassessment: mb9 mb9 11:20 09:10 Respiratory: Airway is patent Respiratory effort is even, unlabored, Respiratory mb9 pattern is regular, symmetrical, Breath sounds are clear bilaterally. mb9 11:20 09:10 GI: Abdomen is flat, Bowel sounds present X 4 quads. Abd is soft and non tender X mb9 4 quads. mb9
--- NOTE | 2021-12-25 09:28 | EDPHYS ---
Physician Documentation [facility] Name: Bayron Box Age: 56 yrs Sex: Male : 1965 Arrival Date: 12/25/2021 Time: 08:52 Bed 27 Private MD: Castro Martinez ED Physician Guanako Reeves HPI: 12/25 09:19 This 56 yrs old Male presents to ER via Ambulatory with complaints of Chest song Pain. 09:19 The patient or guardian reports chest pain that is located primarily in the substernal song area. Onset: 1 day(s) ago. The pain does not radiate. Associated signs and symptoms: The patient has no apparent associated signs or symptoms. The chest pain is described as a pressure, sharp. Duration: The patient or guardian reports a single episode, that is still ongoing, but improving. Modifying factors: The symptoms are alleviated by nothing. the symptoms are aggravated by nothing. Severity of pain: At its worst the pain was mild moderate in the emergency department the pain is unchanged. The patient has not experienced similar symptoms in the past. Historical: - Home Meds: 09:02 sotalol Oral [Active]; Pradaxa Oral [Active]; jh5 - PMHx: 09:02 Atrial Fib; jh5 - Immunization history:: Adult Immunizations up to date. - Social history:: Smoking status: Patient reports the use of cigarette tobacco products, smokes one pack cigarettes per day. - Family history:: not pertinent. ROS: 09:19 Constitutional: Negative for fever, chills, and weight loss, Eyes: Negative for injury, song pain, redness, and discharge, ENT: Negative for injury, pain, and discharge, Neck: Negative for injury, pain, and swelling, Respiratory: Negative for shortness of breath, cough, wheezing, and pleuritic chest pain, Abdomen/GI: Negative for abdominal pain, nausea, vomiting, diarrhea, and constipation, Back: Negative for injury and pain, : Negative for injury, bleeding, discharge, and swelling, MS/Extremity: Negative for injury and deformity, Skin: Negative for injury, rash, and discoloration, Neuro: Negative for headache, weakness, numbness, tingling, and seizure, Psych: Negative for depression, anxiety, suicide ideation, homicidal ideation, and hallucinations, Allergy/Immunology: Negative for hives, rash, and allergies, Endocrine: Negative for neck swelling, polydipsia, polyuria, polyphagia, and marked weight changes, Hematologic/Lymphatic: Negative for swollen nodes, abnormal bleeding, and unusual bruising. 09:19 Cardiovascular: Positive for chest pain. Exam: :19 Constitutional: This is a well developed, well nourished patient who is awake, alert, song and in no acute distress. Head/Face: Normocephalic, atraumatic. Eyes: Pupils equal round and reactive to light, extra-ocular motions intact. Lids and lashes normal. Conjunctiva and sclera are non-icteric and not injected. Cornea within normal limits. Periorbital areas with no swelling, redness, or edema. ENT: Nares patent. No nasal discharge, no septal abnormalities noted. Tympanic membranes are normal and external auditory canals are clear. Oropharynx with no redness, swelling, or masses, exudates, or evidence of obstruction, uvula midline. Mucous membranes moist. Neck: Trachea midline, no thyromegaly or masses palpated, and no cervical lymphadenopathy. Supple, full range of motion without nuchal rigidity, or vertebral point tenderness. No Meningismus. Chest/axilla: Normal chest wall appearance and motion. Nontender with no deformity. No lesions are appreciated. Cardiovascular: Regular rate and rhythm with a normal S1 and S2. No gallops, murmurs, or rubs. Normal PMI, no JVD. No pulse deficits. Respiratory: Lungs have equal breath sounds bilaterally, clear to auscultation and percussion. No rales, rhonchi or wheezes noted. No increased work of breathing, no retractions or nasal flaring. Abdomen/GI: Soft, non-tender, with normal bowel sounds. No distension or tympany. No guarding or rebound. No evidence of tenderness throughout. Back: No spinal tenderness. No costovertebral tenderness. Full range of motion. Male : Normal genitalia with no discharge or lesions. Skin: Warm, dry with normal turgor. Normal color with no rashes, no lesions, and no evidence of cellulitis. MS/ Extremity: Pulses equal, no cyanosis. Neurovascular intact. Full, normal range of motion. Neuro: Awake and alert, GCS 15, oriented to person, place, time, and situation. Cranial nerves II-XII grossly intact. Motor strength 5/5 in all extremities. Sensory grossly intact. Cerebellar exam normal. Normal gait. Psych: Awake, alert, with orientation to person, place and time. Behavior, mood, and affect are within normal limits. 09:19 ECG was reviewed by the Attending Physician. 11:05 ECG was reviewed by the Attending Physician. [facility] Vital Signs: 09:01 Resp 18; Weight 113.4 kg; Height 6 ft. 7 in. (200.66 cm); [facility] 09:10 BP 139 / 79; Pulse 62; Resp 16; Pulse Ox 100% on R/A; mb9 09:37 BP 141 / 89; Pulse 69; Resp 18; Pulse Ox 100% on R/A; Pain 0/10; mb9 11:21 BP 127 / 89; Pulse 60; Resp 16; Pulse Ox 100% on R/A; mb9 12:15 BP 135 / 90; Pulse 57; Resp 16; Pulse Ox 100% on R/A; mb9 13:00 BP 113 / 58; Pulse 59; Resp 16; Pulse Ox 100% on R/A; mb9 14:13 BP 121 / 81; Pulse 54; Resp 14; Pulse Ox 100% on R/A; mb9 19:13 BP 115 / 72; Pulse 62; Resp 18; Pulse Ox 96% on R/A; vc1 09:01 Body Mass Index 28.16 (113.40 kg, 200.66 cm) [facility] MDM: 08:53 Patient medically screened. [facility] 09:23 Differential diagnosis: abnormal EKG, acute myocardial infarction, acute pericarditis, song coronary artery disease Cholelithiasis costochondritis, hiatal hernia, pancreatitis, pericarditis, pleurisy, pneumonia, pulmonary embolus, stable angina, unstable angina. HEART Score: History: Moderately Suspicious (1), ECG: Normal (0), Age: > 45 and < 65 years (1), Risk Factors: > or = 3 Risk factors for atherosclerotic disease (2), [Hypercholesterolemia] [Hypertension] [Active Smoker] [+ Family HX] Troponin: < or = 1 x Normal Limit (0). The patient was given aspirin in the Emergency Department. The patient's deep vein thrombosis risk score was calculated as follows: Total Score: 0. This patient was found to be at low risk for a deep vein thrombosis by using the Well's assessment criteria. The patient's pulmonary embolism risk score was calculated as follows: Total Score: 0-2 points. This patient was found to be at low risk for a pulmonary embolism by using the Well's assessment criteria. SACHA Risk Score: 1 - Three or more CAD risk factors, TOTAL SCORE = 1. Data reviewed: vital signs, nurses notes, lab test result(s), EKG, radiologic studies, doppler, plain films. Data interpreted: environmental monitoring specialist: rate is 62 beats/min, rhythm is regular, Pulse oximetry: on room air is 100 %. Test interpretation: by ED physician or midlevel provider: ECG, plain radiologic studies. Counseling: I had a detailed discussion with the patient and/or guardian regarding: the historical points, exam findings, and any diagnostic results supporting the discharge/admit diagnosis, lab results, radiology results, the need for outpatient follow up, the need for further work-up and treatment in the hospital. 12/25 08:59 Order name: Basic Metabolic Panel; Complete Time: 10:04 song 12/25 08:59 Order name: CBC with Diff; Complete Time: 10:04 song 12/25 08:59 Order name: LFT's; Complete Time: 10:04 song 12/25 08:59 Order name: Magnesium; Complete Time: 10:04 song 12/25 08:59 Order name: NT PRO-BNP; Complete Time: 10:04 song 12/25 08:59 Order name: PT-INR; Complete Time: 10:04 song 12/25 08:59 Order name: Troponin HS; Complete Time: 10:04 song 12/25 08:59 Order name: Lipase; Complete Time: 10:04 song 12/25 09:21 Order name: TSH; Complete Time: 10:09 em1 12/25 10:43 Order name: Urine Dipstick-Ancillary; Complete Time: 10:47 EDMS 12/25 12:55 Order name: Basic Metabolic Panel EDMS 12/25 12:55 Order name: Basic Metabolic Panel EDMS 12/25 12:55 Order name: CBC with Automated Diff EDDC 12/25 08:59 Order name: XRAY Chest (1 view); Complete Time: 10:04 song 12/25 08:59 Order name: EKG; Complete Time: 09:00 song 12/25 09:18 Order name: CT Chest For PE Angio; Complete Time: 13:19 song 12/25 10:56 Order name: EKG; Complete Time: 10:56 [facility] 12/25 12:55 Order name: CONS Physician Consult [facility] 12/25 12:55 Order name: CBC with Automated Diff EDDC 12/25 12:55 Order name: Lipid Profile [facility] 12/25 12:55 Order name: Lipid Profile [facility] 12/25 13:20 Order name: Echo w/ Doppler [facility] 12/25 08:59 Order name: Cardiac monitoring; Complete Time: 09:08 [facility] 12/25 08:59 Order name: EKG - Nurse/Tech; Complete Time: 09:08 [facility] 12/25 08:59 Order name: IV Saline Lock; Complete Time: 09:08 [facility] 12/25 08:59 Order name: Labs collected and sent; Complete Time: 10:34 [facility] 12/25 08:59 Order name: O2 Per Protocol; Complete Time: 09:08 [facility] 12/25 08:59 Order name: O2 Sat Monitoring; Complete Time: 09:08 [facility] 12/25 08:59 Order name: Urine Dipstick-Ancillary (obtain specimen); Complete Time: 10:42 [facility] 12/25 10:56 Order name: EKG - Nurse/Tech; Complete Time: 11:18 [facility] 12/25 12:55 Order name: Heart Healthy EDDC EC:19 Rate is 60 beats/min. Rhythm is regular. QRS [place] is Normal. DC interval is normal. QRS song interval is normal. QT interval is normal. No Q waves. T waves are Normal. No ST changes noted. Clinical impression: Normal ECG and No evidence of ischemia. Interpreted by me. Reviewed by me. 11:05 Rate is 60 beats/min. Rhythm is regular. QRS [place] is Normal. DC interval is normal. QRS song interval is normal. QT interval is normal. No Q waves. T waves are Normal. No ST changes noted. Clinical impression: NSR w/ Non-specific ST/T Changes and No evidence of ischemia. Interpreted by me. Reviewed by me. Administered Medications: 09:12 Not Given (Physician Discretion): Aspirin Chewable Tablet 324 mg PO once; 81 mg tablets mb9 x 4 09:34 Not Given (Patient Refused): Lovenox (enoxaparin) 1 mg/kg Sub-Q once mb9 09:34 Drug: Pepcid (famotidine) 20 mg Route: IVP; Site: left antecubital; mb9 09:47 Follow up: Response: No adverse reaction mb9 11:18 Drug: morphine 4 mg Route: IVP; Infused Over: 4 mins; Site: left forearm; mb9 12:51 Follow up: Response: No adverse reaction mb9 11:18 Drug: Zofran (Ondansetron) 4 mg Route: IVP; Site: left forearm; mb9 12:51 Follow up: Response: No adverse reaction mb9 11:18 Drug: GI Cocktail without - (Maalox Suspension 30 ml, Lidocaine Liquid 2 % 15 mb9 ml) Route: PO; 12:51 Follow up: Response: No adverse reaction mb9 Disposition Summary: 12/25/21 09:27 Hospitalization Ordered Hospitalization Status: Observation song Condition: Fair song Problem: new song Symptoms: have improved song Bed/Room Type: Standard song Provider: Florin Colón(12/25/21 09:35) song Location: Telemetry/MedSurg (observation)(12/25/21 20:21) mw Room Assignment: 422(12/25/21 20:49) mw Diagnosis - Chest pain on breathing song - Chest pain, unspecified song - Angina pectoris, unspecified song - Tobacco abuse counseling song - Tobacco use song - Solitary pulmonary nodule - x 2 song Forms: - Medication Reconciliation Form song - SBAR form song Signatures: Dispatcher [employer] EDMS Estefania Cortez RN RN mw Anderson, Corey, MD MD cha Baxter, Heather, RN RN hb Rees, Jessica RN RN jh5 [facility] Nicky Perales RN RN mb9 Corrections: (The following items were deleted from the chart) 09:35 09:27 Armand Booth song song 10:38 10:08 SARS-COV-2 Antigen Rapid+I.LAB.BRZ ordered. EDDC EDMS 20:09 09:27 Telemetry/MedSurg (observation) song hb 20:09 09:27 song hb 20:21 20:09 [facility] ER HOLD hb mw 20:21 20:09 ERHOLD- hb mw 20:49 20:21 mw mw
--- NOTE | 2021-12-25 09:44 | RAD REPORT ---
EXAM DESCRIPTION: RAD - Chest Single View - 12/25/2021 9:25 am CLINICAL HISTORY: CHEST PAIN COMPARISON: Portable 04/13/2019 TECHNIQUE: AP portable chest image was obtained 12/25/2021 9:25 am . FINDINGS: No focal mass or consolidation. Interstitial pattern is prominent but not clearly differen t from comparison. Heart and vasculature are normal. No measurable pleural effusion and no pneumothorax. No acute bony abnormality seen. No acute aortic findings suspected. IMPRESSION: No acute cardiopulmonary process. Chronic interstitial lung pattern matches comparison.
[2021-12-25 09:46] LABS: Bilirubin Direct 0.1 mg/dL (0-0.2); Bilirubin Total 0.5 mg/dL (0.2-1.0); Potassium 4.5 mmol/L (3.5-5.1); Protein, Total 7.8 g/dL (6.4-8.2); Troponin High Sensitivity 5.9 pg/mL (<58.9)
[2021-12-25 10:43] LABS: Urine Blood Trace-intact (Negative); Urine Glucose Negative (Negative); Urine Protein Negative (Negative); Urine Specific Gravity 1.015 (1.005-1.030); Urine pH 5.5 (5.0-7.0)
--- NOTE | 2021-12-25 10:47 | RAD REPORT ---
EXAM DESCRIPTION: CT - Chest For Pe Angio - 12/25/2021 10:20 am CLINICAL HISTORY: cp COMPARISON: Chest Single View dated 12/25/2021 TECHNIQUE: Dynamically enhanced 2 mm thick images of the chest were obtained during administration o f approximately 150mL Isovue 370 IV contrast. Coronal and oblique MIP reconstruction images were gene rated and reviewed. Exam utilizes a protocol to evaluate the pulmonary arterial tree. All CT scans are performed using dose optimization technique as appropriate and may include automated exposure control or mA/KV adjustment according to patient size. FINDINGS: Pulmonary arterial tree opacification is not optimal but is sufficient to evaluate for pul monary embolic disease. There are no pulmonary emboli identified. The aorta as imaged shows no acute or suspicious finding. No pericardial thickening or effusion. No pulmonary contusion or acute infiltrate in the lung parenchyma. Atelectasis and fibrotic changes a re present in each posterior lower lung field. Scarring is seen at the base of the lingula and anteri or base of the right middle lobe. In the lateral left upper lobe (series 402, image 77) there is a 9 millimeter round noncalcified nodule. In the posterior superior right upper lobe (series 402, image 3 3) there is a 13 millimeter oval pleural abutting nodule. Both appear to have some component of calci fication. No pleural effusion or pleural thickening. No mediastinal or hilar suspicious masses. No chest wall masses or abnormal axillary lymphadenopathy. IMPRESSION: No pulmonary emboli identified. Two pulmonary nodules are present measuring 9 mm and 13 mm in size. Fleischner Society criteria recom mendation would be CT imaging in 3-6 months with additional 18-[address] follow-up to be obtained in high risk patient and considered in the low risk patient. Scarring atelectasis at each lung base. Subpleural bulla and bleb formation seen in each lung apex.
[2021-12-25] MEDS ORDERED: MAGNES/ALUMIN/SIMET 30ML UCUP ONE (11:04)
[2021-12-25] MEDS ORDERED: ONDANSETRON 4 MG/2 ML VIAL ONE (11:04)
[2021-12-25] MEDS ORDERED: MORPHINE 4 MG/ML SYR ONE (11:04)
[2021-12-25] MEDS ORDERED: LIDOCAINE VISCOUS 2% SOLN 15 ML UDC ONE (11:05)
[2021-12-25] MEDS ORDERED: MORPHINE 4 MG/ML SYR IV PRN (12:48)
[2021-12-25] MEDS ORDERED: ALPRAZOLAM 0.25 MG TABLET PO PRN (12:48)
[2021-12-25] MEDS ORDERED: ACETAMINOPHEN 500 MG TAB PO PRN (12:48)
[2021-12-25 15:14] VITALS: BMI 28.0
[2021-12-25] MEDS ORDERED: SOTALOL HCL 80 MG TAB ONE (20:34)
[2021-12-25] MEDS: SOTALOL HCL 80 MG TAB PO SCH (20:39)
[2021-12-25] MEDS: DABIGATRAN 75 MG CAP PO SCH (20:40)
[2021-12-25] MEDS ORDERED: METOPROLOL TAR 50 MG TAB PO SCH (21:00)
[2021-12-26 04:33] VITALS: O2SAT 96
[2021-12-26 04:51] LABS: MPV 8.2 fL (7.6-11.3); RBC Red Blood Cell Count 4.52 M/uL (4.33-5.43)
[2021-12-26 05:07] LABS: Potassium 4.2 mmol/L (3.5-5.1); Troponin High Sensitivity 6.8 pg/mL (<58.9)
--- NOTE | 2021-12-26 07:13 | ECHO ---
HEIGHT: 6 ft 7 in WEIGHT: 249 lb 0 oz DATE OF STUDY: 12/25/[address]: Guanako Reeves MD 2-DIMENSIONAL: YES M.MODE: YES DOPPLER: YES COLOR FLOW: YES TDS: YES PORTABLE: YES DEFINITY: NO BUBBLE STUDY: NO DIAGNOSIS: CHEST PAIN CARDIAC HISTORY: CATHERIZATION:YES SURGERY: NO PROSTHETIC VALVE: NO PACEMAKER: NO MEASUREMENTS (cm) DIASTOLIC (NORMALS) SYSTOLIC (NORMALS) IVSd 1.1 (0.6-1.2) LA Diam 2.4 (1.9-4.0) LVEF 57% LVIDd 3.4 (3.5-5.7) LVIDs 2.4 (2.0-3.5) %FS 29% LVPWd 1.3 (0.6-1.2) Ao Diam 2.8 (2.0-3.7) 2 DIMENSIONAL ASSESSMENT: RIGHT ATRIUM: NOT SEEN WELL LEFT ATRIUM: NORMAL RIGHT VENTRICLE: NOT SEEN WELL LEFT VENTRICLE: NORMAL TRICUSPID VALVE: NOT SEEN WELL MITRAL VALVE: PULMONIC VALVE: NOT SEEN WELL AORTIC VALVE: NORMAL PERICARDIAL EFFUSION: NONE AORTIC ROOT: NORMAL LEFT VENTRICULAR WALL MOTION: NORMAL DOPPLER/COLOR FLOW: SEE BELOW COMMENTS: NORMAL LEFT VENTRICULAR EJECTION FRACTION 55-60%. MILD MITRAL REGURGITATION. LIMITED WINDOWS UNABLE TO EVALUATE THE RIGHT HEART. TECHNOLOGIST: Kim DÍAZ
[2021-12-26] MEDS ORDERED: ASPIRIN EC 81 MG TAB PO SCH (09:00)
[2021-12-26] MEDS: SOTALOL HCL 80 MG TAB PO SCH (09:00)
[2021-12-26] MEDS ORDERED: ENOXAPARIN 40 MG/0.4 ML SQ SCH (09:00)
[2021-12-26] MEDS: DABIGATRAN 75 MG CAP PO SCH (09:00)
--- NOTE | 2021-12-26 11:12 | P.HP ---
Certification for Inpatient Patient admitted to: Observation With expected LOS: <2 Midnights Patient will require the following post-hospital care: None Practitioner: I am a practitioner with admitting privileges, knowledge of patient current condition, hospital course, and medical plan of care. Services: Services provided to patient in accordance with Admission requirements found in Title 42 Section 412.3 of the Code of Federal Regulations Patient History Date of Service: 12/25/21 Reason for admission: Chest pain rule out acute coronary syndrome History of Present Illness: Patient is a 56-year-old gentleman who came to the hospital with chest discomfort. Pain was mainly in the sternal region with some radiation to the left shoulder. Patient stated that he had been doing some heavy lifting. He has a strenuous job which has been doing a lot of strenuous work. He has a history of atrial fibrillation with medication therapy with amiodarone, sotalol, and Eliquis. He is feeling much better. His initial troponins are negative. He will be admitted to the hospital to be ruled out for acute coronary syndrome. Echocardiogram pending. Cardiology consultation obtained. Allergies No Known Allergies Allergy (Unverified 04/13/19 01:36) Home Medications: Dabigatran Etexilate Mesylate [Pradaxa*] 150 mg PO BID 04/13/19 Sotalol HCl [Sotalol AF] 80 mg PO BID 04/13/19 Amiodarone HCl [Cordarone Tab] 200 mg PO DAILY 12/25/21 - Past Medical/Surgical History Diabetic: No -: Chronic atrial fibrillation -: Status post cardioversion -: finger sx - Family History Father Medical History: Hypertension Mother Notes: no medical condition - Social History Smoking Status: Former smoker Alcohol use: Yes CD- Drugs: No Caffeine use: Yes Review of Systems 10-point ROS is otherwise unremarkable Physical Examination - Vital Signs Temperature: 97.5 F Blood Pressure: 127/76 Pulse: 50 Respirations: 16 Pulse Ox (%): 94 - Physical Exam General: Alert, In no apparent distress, Oriented x3 HEENT: Atraumatic, PERRLA, Mucous membr. moist/pink, EOMI, Sclerae nonicteric Neck: Supple, 2+ carotid pulse no bruit, No LAD, Without JVD or thyroid abnormality Respiratory: Clear to auscultation bilaterally, Normal air movement Cardiovascular: Normal S1 S2, No murmurs, Irregular heart rate/rhythm Gastrointestinal: Normal bowel sounds, Soft and benign, Non-distended, No tenderness Musculoskeletal: No clubbing, No swelling, No tenderness Integumentary: No rashes Neurological: Normal gait, Normal speech, Normal strength at 5/5 x4 extr, Normal tone, Sensation intact, Cranial nerves 3-12 intact, Normal affect Lymphatics: No axilla or inguinal lymphadenopathy Assessment & Plan - Problems (Diagnosis) (1) Chest pain, rule out acute myocardial infarction Current Visit: Yes Status: Acute (2) Atrial fibrillation Current Visit: No Status: Acute (3) Tobacco use Current Visit: No Status: Acute - Plan -High-sensitivity troponin -Cardiology consultation -Echocardiogram -Repeat EKG -Work-up for other etiologies of cardiac chest pain if troponins remain negative -Lipid profile -Licensed Sales Producer regarding modifying risk for cardiac disease Discharge Plan: Home Plan to discharge in: 24 Hours - Advance Directives Does patient have a Living Will: No Does patient have a Durable POA for Healthcare: Yes - Code Status/Comfort Care Code Status Assessed: Yes Code Status: Full Code Critical Care: No Time Spent Managing PTS Care (In Minutes): 40
--- NOTE | 2021-12-26 11:14 | P.DS ---
Discharge Date: 12/26/21 Disposition: ROUTINE DISCHARGE Discharge Condition: GOOD Reason for Admission: Chest pain rule out acute coronary syndrome Consultations: Cardiology - Problems (1) Chest pain, rule out acute myocardial infarction Current Visit: Yes Status: Acute (2) Atrial fibrillation Current Visit: No Status: Acute (3) Tobacco use Current Visit: No Status: Acute Brief History of Present Illness: Patient is a 56-year-old gentleman who came to the hospital with chest discomfort. Pain was mainly in the sternal region with some radiation to the left shoulder. Patient stated that he had been doing some heavy lifting. He has a strenuous job which has been doing a lot of strenuous work. He has a history of atrial fibrillation with medication therapy with amiodarone, sotalol, and Eliquis. He is feeling much better. His initial troponins are negative. He will be admitted to the hospital to be ruled out for acute coronary syndrome. Echocardiogram pending. Cardiology consultation obtained. Hospital Course: Patient was ruled out for acute coronary syndrome. Echocardiogram without any significant abnormality. Atrial fibrillation but rate is controlled. Cardio marilee has seen the patient and patient is advised to follow-up as an outpatient for stress testing. Patient to go back to work without restrictions at this time pending cardiology consultation. Vital Signs/Physical Exam: Temp Pulse Resp BP Pulse Ox 97.5 F 50 16 127/76 94 12/26/21 11:12 12/26/21 11:12 12/26/21 11:12 12/26/21 11:12 12/26/21 11:12 General: Alert, In no apparent distress, Oriented x3 Laboratory Data at Discharge: WBC 9.50 K/uL (4.3-10.9) 12/26/21 03:42 Hgb 14.2 g/dL (13.6-17.9) 12/26/21 03:42 Hct 42.0 % (39.6-49.0) 12/26/21 03:42 Plt Count 224 K/uL (152-406) 12/26/21 03:42 PT 10.2 SECONDS (9.5-12.5) 12/25/21 09:09 INR 0.93 12/25/21 09:09 Sodium 137 mmol/L (136-145) 12/26/21 03:42 Potassium 4.2 mmol/L (3.5-5.1) 12/26/21 03:42 BUN 14 mg/dL (7-18) 12/26/21 03:42 Creatinine 0.94 mg/dL (0.55-1.3) 12/26/21 03:42 Glucose 100 mg/dL (74-106) 12/26/21 03:42 Magnesium 2.0 mg/dL (1.8-2.4) 12/25/21 09:09 Total Bilirubin 0.5 mg/dL (0.2-1.0) 12/25/21 09:09 AST 20 U/L (15-37) 12/25/21 09:09 ALT 35 U/L (12-78) 12/25/21 09:09 Alkaline Phosphatase 100 U/L (45-117) 12/25/21 09:09 Triglycerides 80 mg/dL (<150) 12/26/21 10:09 Cholesterol 158 mg/dL (<200) 12/26/21 10:09 HDL Cholesterol 61 mg/dL (40-60) H 12/26/21 10:09 Cholesterol/HDL Ratio 2.59 12/26/21 10:09 Lipase 273 U/L (73-393) 12/25/21 09:09 Home Medications: Dabigatran Etexilate Mesylate [Pradaxa*] 150 mg PO BID 04/13/19 Sotalol HCl [Sotalol AF] 80 mg PO BID 04/13/19 Amiodarone HCl [Cordarone Tab] 200 mg PO DAILY 12/25/21 Physician Discharge Instructions: -DC IV and DC home -Follow-up with PCP in 1 to 2 weeks -Follow-up with Cardiology in 1 to 2 weeks -Please call Dr. Colón at [phone] if any questions regarding hospital stay -Please call nursing station at [phone] if any nursing or medication questions -Return to the emergency room if symptoms worsen Diet: AHA Activity: Fall precautions Followup: NONE,NONE [Primary Care Provider] - Time spent managing pt's care (in minutes): 35
[2021-12-26 12:30] VITALS: BP 119/74; TEMP 97
--- NOTE | 2021-12-26 20:29 | CON ---
Date of Consultation: 12/26/2021 Reason For Consultation: Chest pain. History Of Present Illness: This 56-year-old male with history of diabetes and atrial fibrillation p resented with chest pain, sharp in nature, left sided, no radiation, not related to exertion. Patien martita has history of atrial fibrillation and is on sotalol and Eliquis. Since he was admitted, chest silke n has improved and today he has 0 chest pain. Past Medical History: As outlined above in the HPI. Medications: Refer to reconciliation sheet for detailed list. Allergies: NO KNOWN DRUG ALLERGIES. Family History: No premature coronary artery disease or cancer. Social History: Does not smoke or drink. Does not use any drugs. Review of Systems: All systems reviewed and they are negative except for what is mentioned in HPI. Physical Examination: Vital Signs: Reviewed. Head And Neck: Pupils are equal and reactive to light. Intact eye movements. No JVD. No cervical lymphadenopathy. Neck: Supple. Thyroid is not enlarged. Lungs: Clear to auscultation bilaterally. No rhonchi, wheezing, or crackles. No accessory muscle u se. Heart: Regular rate and rhythm. No extra sounds. Abdomen: Soft, nontender. Bowel sounds positive. No organomegaly. No masses or hernia. No rigidi ty or rebound. Extremities: No edema, clubbing, or cyanosis. Intact pulses. Skin: No rash. Neuro: Alert, awake, and oriented x3. No acute focal deficits appreciated. Investigations: He had 3 sets of troponins that were all negative. BUN 14, creatinine 0.94. His LD L is 81 and HDL is 61. Assessment And Recommendations: Chest pain. This is atypical pain. Echo was reviewed and it is nor mal. He has normal ejection fraction and normal wall motion. From Cardiology standpoint, patient ca n be released and follow up as an outpatient for exercise stress test. SR/MODL Voice ID: [id number] Report ID: [id number]
--- NOTE | 2021-12-27 16:58 | EKG ---
Test Date: 2021-12-25 Test Time: 08:59:04 Patient Companion: TAO MEASUREMENT RESULTS: Intervals: Rate: 60 OR: 174 QRSD: 100 QT: 442 QTc: 442 [place]: P: 74 OR: 174 QRS: 54 T: 76 INTERPRETIVE STATEMENTS: Normal sinus rhythm Normal ECG Compared to ECG 04/14/2019 08:21:10 Sinus bradycardia no longer present Electronically Signed On 12-27-21 16:54:45 CDT by Siva Jain
--- NOTE | 2021-12-27 16:58 | EKG ---
Test Date: 2021-12-25 Test Time: 10:56:00 [employer]: MB MEASUREMENT RESULTS: Intervals: Rate: 60 PA: 184 QRSD: 102 QT: 446 QTc: 446 [place]: P: 72 PA: 184 QRS: 71 T: 69 INTERPRETIVE STATEMENTS: Normal sinus rhythm with sinus arrhythmia Normal ECG Compared to ECG 12/25/2021 08:59:04 No significant changes Electronically Signed On 12-27-21 16:54:42 CDT by Siva Jain
== END 2021-12-26 13:00 | disposition home or self-care (01) ==
LOC: ER 08:50 → ERHOLD 12:50 → 4TH 21:27
PROVIDERS: ADMIT Hospitalist; ATTEND Hospitalist
DX: R07.9 Chest pain, unspecified (principal); I48.91 Unspecified atrial fibrillation; Z79.01 Long term (current) use of anticoagulants; Z72.0 Tobacco use
CPT/HCPCS: 36415; 71045; 71275; 80048; 80061; 80076; 81003; 83690; 83735; 83880; 84443; 84484; 85025; 85610; 93005; 93306; 99284; G0378; J1650; J2405; Q9967

== ENCOUNTER 2024-07-27 06:56 | Day surgery (SDC) | payer SELFPAY ==
[2024-07-24 14:56] LABS: Absolute Basophils 0.1 K/uL (0-0.5); Absolute Eosinophils 0.1 K/uL (0-0.5); Absolute Lymphocytes (CBC) 2.8 K/uL (0.7-4.9); Absolute Monocytes 0.9 K/uL (0.1-1.3); Absolute Neutrophil 5.7 K/uL (1.8-8.0); Basophils % 1.1 % (0-1.3); Eosinophils % 1.4 % (0-4.4); Hematocrit 45.9 % (39.6-49.0); MCH 31.7 pg (27.0-35.0); MCHC 34.8 g/dL (32.0-36.0); MCV 91.2 fL (80-100); MPV 8.4 fL (7.6-11.3); Monocytes % 9.2 % (3.3-12.3); Neutrophils % 59.3 % (41.7-73.7); Nucleated Red Blood Cells % 0.1 % (0-0); Platelets 244 thou/uL (152-406); RBC Red Blood Cell Count 5.04 M/uL (4.33-5.43); Red Cell Distribution Width 14.4 % (12.1-15.2)
[2024-07-24 15:04] LABS: PT Prothrombin Time 11.1 SECONDS (10-13.0); PTT, Activated Partial Thromb 27.6 SECONDS (27.2-37.4); Protime INR 0.97
[2024-07-24 15:08] LABS: Anion Gap 9.2 mEq/L (5.0-15.0); Potassium 4.2 mEq/L (3.5-5.1)
[2024-07-27] MEDS ORDERED: NA CHLORIDE 0.9% 500 ML ONE (06:58)
[2024-07-27] MEDS ORDERED: LIDOCAINE 1% MPF 5 ML VIAL ONE (08:43)
[2024-07-27] MEDS ORDERED: propofoL 200 MG/20 ML VIAL IV ONE ×2 (08:43→09:05)
[2024-07-27] MEDS ORDERED: DEXMEDETOMIDINE HCL 200 MCG/2 ML VIAL ONE (09:13)
[2024-07-27 10:47] VITALS: BP 106/75; O2SAT 95
--- NOTE | 2024-07-27 14:58 | TEE ---
TRANSESOPHAGEAL ECHOCARDIOGRAM REPORT CARDIOLOGY DEPARTMENT DATE OF STUDY: 07/27/2024 HEIGHT: 6'5" WEIGHT: 241 lbs DIAGNOSIS: ATRIAL FIBRILLATION CAFETERIA COUNTER ATTENDANT COMMENTS: LANA CARDIAC HISTORY: CATHERIZATION: SURGERY: PROSTHETIC VALVE: PACEMAKER: 2 DIMENSIONAL ASSESSMENT: RIGHT ATRIUM: LEFT ATRIUM: RIGHT VENTRICLE: LEFT VENTRICLE: TRICUSPID VALVE: MITRAL VALVE: PULMONIC VALVE: AORTIC VALVE: PERICARDIAL EFFUSION: AORTIC ROOT: EJECTION FRACTION: LEFT VENTRICULAR WALL MOTION: DOPPLER/COLOR FLOW: COMMENTS: 1. ECHOGENIC MASS SEEN IN LEFT ATRIAL APPENDAGE MOST LIKELY REPRESENTS A THROMBUS, MEASURING 1.5 BY 0.8 CENTIMETERS IN DIAMETER. TECHNOLOGIST: ROSITA SEVERINO
--- NOTE | 2024-07-27 18:57 | OP ---
Date of Procedure: 07/27/2024 Surgeon: Min Mix Procedure Performed: Transesophageal echocardiogram. Indication For Procedure: Atrial fibrillation. Complications: None. Estimated Blood Loss: None. Sedation: Done by Anesthesia Team. Description Of Procedure: After risks, benefits, and alternatives were explained to the patient, the patient agreed to proceed with procedure and signed informed consent. The patient was brought back to the laboratory specialist, prepped and draped in usual sterile fashion. Time-out was performed. Sedation was administered by Anesthesia Team. A LANA probe was inserted images were obtained, and LANA probe was ou t. Cardioversion was aborted due to the patient having left atrial appendage thrombus. The patient was moved back to recovery in stable condition. Assessment And Plan: Atrial fibrillation, status post transesophageal echocardiogram that shows left atrial appendage thrombus and so a cardioversion was not done. Plan is to continue Eliquis 5 mg p.o. b.i.d. and repeat LANA in 6 to 8 weeks. AMARA/DARNELL Voice ID: [id number] Report ID: [id number]
== END 2024-07-27 10:48 | disposition home or self-care (01) ==
LOC: CCL 06:56
PROVIDERS: ATTEND Internal Medicine Interventional Cardiology
PROC: B24BZZ4 Ultrasonography of Heart with Aorta, Transesophageal (ICD-10-PCS; principal; 2024-07-27)
DX: I48.0 Paroxysmal atrial fibrillation (principal); I51.3 Intracardiac thrombosis, not elsewhere classified; F17.210 Nicotine dependence, cigarettes, uncomplicated; Z91.89 Other specified personal risk factors, not elsewhere classified; Z79.01 Long term (current) use of anticoagulants; Z79.899 Other long term (current) drug therapy
CPT/HCPCS: 01922; 36415; 80048; 85025; 85610; 85730; 93312; J2003; J2704; J7040